=== PATIENT | female | born 1995 | race Caucasian/White ===

== ENCOUNTER 2017-12-16 12:55 | Emergency (ER) | payer OTHER, BC ==
[~2017-12-16] VITALS: Ht 154.9 cm; Wt 63.6 kg
[2017-12-16 12:59] VITALS: TEMP 98.9
[2017-12-16] MEDS ORDERED: PRILOSEC 20MG20 MG PO (13:50)
[2017-12-16 14:17] VITALS: BP 121/64; PULSE 71
== END 2017-12-16 14:17 | disposition home or self-care (01) ==
LOC: COL.ER 12:55
DX: T19.2XXA Foreign body in vulva and vagina, initial encounter (principal)

== ENCOUNTER → 2019-11-21 | Outpatient (CLI) | payer OTHER, BC ==
[~2019-11-21] MED LIST: PRILOSEC 20MG20 MG PO
== END ==
LOC: ZCOL.LAB 14:25
DX: U07.1 COVID-19 (principal)